=== PATIENT | male | born 1955 | race Hispanic/Latino ===

== ENCOUNTER 2017-06-25 22:00 | Emergency (ER) | payer OTHER ==
[~2017-06-25] VITALS: Ht 170.2 cm; Wt 79.4 kg
[~2017-06-25 22:00] MED LIST: LOSARTAN POTAS100 MG PO
--- NOTE | 2017-06-25 23:20 | Diagnostic Imaging Report ---
FOOT LEFT COMPLETE Comparison: None Clinical history: Pain, sharp the first digit swelling Findings: Limited portable views provided. Soft tissue swelling is seen about the first digit. Moderate first TP degenerative change. Oblique lucency is seen along the medial distal 1st metatarsal. Impression: 1. Questionable nondisplaced fracture of the medial distal 1st metatarsal; correlate with site of pain and history of trauma. Consider nonportable views for better evaluation. 2. Moderate first MTP degenerative change. Signed by: Dr Tahmina Kemp MD on 06/25/2017 11:16 PM
--- NOTE | 2017-06-26 00:53 | Diagnostic Imaging Report ---
EXAM: CT FOOT LEFT WO DATE: 06/25/2017 11:26 PM INDICATION: Evaluate for fracture COMPARISON: None TECHNIQUE: Left foot was scanned using a multidetector helical scanner. Coronal and sagittal reformations were obtained. Routine protocol performed. IV Contrast: None FINDINGS: SOFT TISSUES/BONES: Mild focal soft tissue induration along the undersurface of the fifth MTP. Moderate first MTP degenerative changes are present with spurring and joint space narrowing. There is no acute fracture or dislocation. IMPRESSION: No acute abnormality. Signed by: Dr Tahmina Kemp MD on 06/26/2017 12:49 AM
[2017-06-26] MEDS ORDERED: INDOCIN50 MG PEG (01:29)
[2017-06-26 01:33] VITALS: BP 150/81
== END 2017-06-26 01:41 | disposition home or self-care (01) ==
LOC: ER 22:00
DX: M79.672 Pain in left foot (principal); M10.072 Idiopathic gout, left ankle and foot; I10 Essential (primary) hypertension
CPT/HCPCS: 99283

== ENCOUNTER 2019-11-08 10:57 | Emergency (ER) | payer OTHER ==
[~2019-11-08] VITALS: Ht 170.2 cm; Wt 79.4 kg
[~2019-11-08 10:57] MED LIST changes: +INDOCIN50 MG PEG
--- OUTSIDE RECORDS SUMMARY | 2019-11-08 10:59 | XMS REPORT | Continuity of Care Document ---
Author Author [facility] Organization [facility] Address [address] [place] [address] [place] [id number] Phone Unavailable Care Team Providers Care Pediatrics Teacher Name Role Phone Jairo CUELLAR Attphys Unavailable Problems This patient has no known problems. Allergies, Adverse Reactions, Alerts This patient has no known allergies or adverse reactions. Medications This patient has no known medications. Procedures This patient has no known procedures. Results Test Description Test Time Test Comments Results Result Comments Source CT FOOT LEFT WO [place] [address] Patient Name: RAQUEL VANCE MR #: [id number] : 1955 Age/Sex: 62/M Req #: [id number] Adm Physician: Ordered by: CAMILLE CUELLAR MD Report #: [id number] Location: ER Room/Bed: Procedure: [id number] CT/CT FOOT LEFT WO Exam Date: 06/26/17 Exam Time: 2348 REPORT STATUS: Signed EXAM: CT FOOT LEFT WO DATE: 06/25/2017 11:26 PM INDICATION: Evaluate for fracture COMPARISON: None TECHNIQUE: Left foot was scanned using a multidetector helical scanner. Coronal and sagittal reformations were obtained. Routine protocol performed. IV Contrast: None FINDINGS: SOFT TISSUES/BONES: Mild focal soft tissue induration along the undersurface of the fifth MTP. Moderate first MTP degenerative changes are present with spurring and joint space narrowing. There is no acute fracture or dislocation. IMPRESSION: No acute abnormality. Signed by: Dr Dandre Kemp MD on 06/26/2017 12:49 AM Dictated By: DANDRE KEMP MD Transcribed By: YOVANI on 06/26/1748 COPY TO: CAMILLE CUELLAR MD FOOT LEFT COMPLETE [place] [address] Patient Name: RAQUEL VANCE MR #: [id number] : 1955 Age/Sex: 62/M Req #: [id number] Adm Physician: Ordered by: CAMILLE CUELLAR MD Report #: [id number] Location: ER Room/Bed: Procedure: [id number] DX/FOOT LEFT COMPLETE Exam Date: 06/25/17 Exam Time: 3 REPORT STATUS: Signed FOOT LEFT COMPLETE Comparison: None Clinical history: Pain, sharp the first digit swelling Findings: Limited portable views provided. Soft tissue swelling is seen about the first digit. Moderate first TP degenerative change. Oblique lucency is seen along the medial distal 1st metatarsal. Impression: 1. Questionable nondisplaced fracture of the medial distal 1st metatarsal; correlate with site of pain and history of trauma. Consider nonportable views for better evaluation. 2. Moderate first MTP degenerative change. Signed by: Dr Dandre Kemp MD on 06/25/2017 11:16 PM Dictated By: DANDRE KEPM MD 15 Transcribed By: YOVANI on 06/25/172315 COPY TO: CAMILLE CUELLAR MD
[2019-11-08] MEDS ORDERED: KETOROLAC TROMETHAMINE 30 MG/ML VIAL IV STA (11:10)
[2019-11-08] MEDS ORDERED: SODIUM CHLORIDE 0.9% 1000ML 1,000 ML IV STA ×2 (11:10→12:54)
[2019-11-08] MEDS ORDERED: CEFTRIAXONE SOD 1 GM/NS 50 ML 50 ML IV STA (11:10)
[2019-11-08] MEDS ORDERED: ONDANSETRON HCL INJ 2MG/ML 2ML 2 MG/ML VIAL IV STA (11:16)
--- NOTE | 2019-11-08 11:16 | Emergency Department Note ---
History of Present Illnes History of Present Illness Chief Complaint: General Medicine Complaints History of Present Illness This is a 64 year old male . c/o r flank pain x 2 wks intermittent worse this am 12/09 hx kidney stones Historian: Patient Arrival Mode: Car Onset (how long ago): day(s) (this am) Location: r flank Quality: 12/09 Radiation: abdomen Severity: moderate Duration (how long): day(s) (this am) Timing of current episode: constant Progression: worsening Context: recent illness, recent surgery, recent immobilization, recent travel, trauma/injury, new medications, hx of DVT/PE, non-compliance w/ medications, other Relieving factors: none Exacerbating factors: none Treatments prior to arrival: none Past Medical/Family History Physician Review I have reviewed the patient's past medical and family history. Any updates have been documented here. Past Medical History Recent Fever: No Clinical Suspicion of Infectio: No New/Unexplained Change in Ment: No Past Medical History: Kidney Stones Other Medical History: BPH Other Surgery: PROSTATES BIOSPY Social History Smoking Cessation: Never Smoker Alcohol Use: None Any Illegal Drug Use: No TB Exposure/Symptoms: No Physically hurt or threatened: No Family History Family history of heart diseas: No Other Last Tetanus: UNK Any Pre-Existing Lines (PICC,: No Review of Systems Review of Systems Constitutional: no symptoms EENTM: no symptoms Cardiovascular: no symptoms Respiratory: no symptoms Gastrointestinal: other (r flank pain) Genitourinary: no symptoms Musculoskeletal: no symptoms Neurological: no symptoms Psychological: no symptoms Endocrine: no symptoms Hematological/Lymphatic: no symptoms Review of other systems All other systems reviewed and negative. Physical Exam Related Data Allergies: Coded Allergies: No Known Allergies (Unverified , 03/07/17) Triage Vital Signs Vital Signs Date Time Temp Pulse Resp B/P (MAP) Pulse Ox O2 Delivery O2 Flow Rate FiO2 11/08/19 11:07 97.5 71 18 165/94 99 Vital signs reviewed: Yes Physical Exam CONSTITUTIONAL Constitutional: well-developed, well-nourished HENT HENT: normocephalic, atraumatic, oropharynx clear/moist, nose normal HENT L/R: left ext ear normal, right ext ear normal EYES Eyes: PERRL, conjunctivae normal NECK Neck: ROM normal PULMONARY Pulmonary: effort normal, breath sounds normal CARDIOVASCULAR Cardiovascular: regular rhythm, heart sounds normal, capillary refill normal, normal rate GASTROINTESTINAL Abdominal: soft, nontender, bowel sounds normal; left CVA tenderness, right CVA tenderness; other (c/o r flank pain x 2 wks intermittent worse this am 12/09 hx kidney stones) GENITOURINARY Genitourinary: exam deferred SKIN Skin: warm, dry MUSCULOSKELETAL Musculoskeletal: ROM normal NEUROLOGICAL Neurological: alert, oriented x 3, no gross motor or sensory deficits PSYCHOLOGICAL Psychological: mood/affect normal, judgement normal Results Laboratory Laboratory Laboratory Tests Test 11/08/19 11:50 11/08/19 11:09 White Blood Count 5.80 x10e3/uL (4.8-10.8) Red Blood Count 4.48 x10e6/uL (4.3-5.7) Hemoglobin 13.9 g/dL (14.0-18.0) Hematocrit 41.6 % (38.2-49.6) Mean Corpuscular Volume 92.9 fL (81-99) Mean Corpuscular Hemoglobin 31.0 pg (28-32) Mean Corpuscular Hemoglobin Concent 33.4 g/dL (31-35) Red Cell Distribution Width 12.5 % (11.7-14.4) Platelet Count 173 x10e3/uL (140-360) Neutrophils (%) (Auto) 71.1 % (38.7-80.0) Lymphocytes (%) (Auto) 21.2 % (18.0-39.1) Monocytes (%) (Auto) 6.7 % (4.4-11.3) Eosinophils (%) (Auto) 0.5 % (0.0-6.0) Basophils (%) (Auto) 0.3 % (0.0-1.0) Neutrophils # (Auto) 4.1 (2.1-6.9) Lymphocytes # (Auto) 1.2 (1.0-3.2) Monocytes # (Auto) 0.4 (0.2-0.8) Eosinophils # (Auto) 0.0 (0.0-0.4) Basophils # (Auto) 0.0 (0.0-0.1) Absolute Immature Granulocyte (auto 0.01 x10e3/uL (0-0.1) Sodium Level 142 mmol/L (136-145) Potassium Level 4.6 mmol/L (3.5-5.1) Chloride Level 109 mmol/L (98-107) Carbon Dioxide Level 24 mmol/L (22-29) Anion Gap 13.6 mmol/L (8-16) Blood Urea Nitrogen 22 mg/dL (7-26) Creatinine 1.71 mg/dL (0.72-1.25) Estimat Glomerular Filtration Rate 41 ML/MIN (60-) BUN/Creatinine Ratio 13 (6-25) Glucose Level 96 mg/dL (74-118) Calcium Level 9.5 mg/dL (8.4-10.2) Total Bilirubin 0.5 mg/dL (0.2-1.2) Aspartate Amino Transf (AST/SGOT) 28 IU/L (5-34) Alanine Aminotransferase (ALT/SGPT) 30 IU/L (0-55) Alkaline Phosphatase 65 IU/L (40-150) Total Protein 6.7 g/dL (6.5-8.1) Albumin 3.9 g/dL (3.5-5.0) Globulin 2.8 g/dL (2.3-3.5) Albumin/Globulin Ratio 1.4 (0.8-2.0) Urine Color Yellow (YELLOW) Urine Clarity Clear (CLEAR) Urine pH 5.5 (5 - 7) Urine Specific [place] >=1.030 (1.010-1.025) Urine Protein 1+ (NEGATIVE) Urine Glucose (UA) Negative (NEGATIVE) Urine Ketones Negative (NEGATIVE) Urine Blood Trace (NEGATIVE) Urine Nitrite Negative (NEGATIVE) Urine Bilirubin Negative (NEGATIVE) Urine Urobilinogen 0.2 mg/dL (0.2 - 1) Urine Leukocyte Esterase Negative (NEGATIVE) Urine RBC 0-5 /HPF (0-5) Urine WBC 0-5 /HPF (0-5) Urine Epithelial Cells Rare /LPF (NONE) Urine Bacteria Moderate /HPF (NONE) Imaging Impressions IMPRESSION: 1. 4 mm stone identified within the mid right ureter resulting in mild dilatation of the right ureter and collecting system. 2. Additional bilateral nonobstructive nephrolithiasis with stone burden as detailed above. 3. Prostatomegaly. 4. Diverticulosis coli without evidence for acute diverticulitis. Signed by: Dr. Dereck Thomas MD on 11/08/2019 11:50 AM Critical Care Time Subsequent provider I assumed direction of critical care for this patient from another provider of my specialty. Assessment & Plan Reassessment Reassessment time: 11:15 Reassessment 64 y m presented to ed c/o r flank pain x 2 wks intermittent worse this am 12/09 hx kidney stones - lab ct ordered - pt emdicated w/ rocephin ns toradol zofran Assessment & Plan Final Impression: (1) Kidney stone on right side Assessment & Plan discussed tyson ct results plan of care and f/u instructions plan 1. follow up with your doctor / urologist in 1-2 days without fail 2. return to ed as needed 3. Tylenol and Motrin 4. increase oral fluids 5. rx t#3 flomax zofran cipro Depart Disposition: HOME, SELF-CARE Last Vital Signs Date Time Temp Pulse Resp B/P (MAP) Pulse Ox O2 Delivery O2 Flow Rate FiO2 11/08/19 11:07 97.5 71 18 165/94 99 Home Meds Active Scripts Indomethacin (INDOCIN) 50 Mg Supp.rect, 50 MG PEG Q8H PRN for PAIN, #20 CAP Prov:CAMILLE CUELLAR MD 06/26/17 Reported Medications Losartan Potassium (LOSARTAN POTASSIUM) 100 Mg Tablet, 50 MG PO DAILY, TAB 03/07/17 GERMAINE GUTIERREZ Nov 08, 2019 11:16
--- NOTE | 2019-11-08 11:53 | Diagnostic Imaging Report ---
CT of the abdomen and pelvis, without contrast. History: Right flank pain. Comparison: None available. Technique: Multidetector CT scanning of the abdomen and pelvis was performed from the level of the lung bases to the inferior pubic rami without the use of contrast material. Coronal and sagittal multiplanar reformations were obtained. RADIATION DOSE: Total DLP: 315.74 mGy*cm Dose modulation, iterative reconstruction, and/or weight based adjustment of the mA/kV was utilized to reduce the radiation dose to as low as reasonably achievable. FINDINGS: Mild scattered areas of subsegmental atelectasis noted within the visualized lungs. The imaged portion of the heart demonstrates no significant abnormalities. The liver is normal in size and attenuation on this noncontrast enhanced examination. The gallbladder is unremarkable. There is no biliary ductal dilatation. The stomach, pancreas, and bilateral adrenal glands are unremarkable. The spleen is mildly prominent measuring 12 cm in length but otherwise appears unremarkable. A splenule is noted adjacent to the spleen. The kidneys are normal in size and location. There are 2 nonobstructing stones identified within the inferior pole of the right kidney measuring up to 4 mm. There is a 4 mm stone identified within the mid right ureter resulting in mild dilatation of the right ureter and collecting system. There is a 8 mm nonobstructing stone identified within the superior/mid left kidney. 3 additional punctate nonobstructing stones are identified within the mid/inferior left kidney. There is no evidence for left-sided hydronephrosis. The left ureter is normal in course and caliber. The partially distended urinary bladder demonstrates no significant abnormalities. The prostate is enlarged and contains calcifications. The abdominal aorta is normal course and caliber with mild atherosclerotic calcifications. The IVC is normal in caliber. Please note evaluation the bowel is limited without the use of enteric contrast material. The visualized loops of small and large bowel demonstrate no evidence of obstruction or inflammation. The appendix is visualized and appears unremarkable. Diverticula are noted within the sigmoid and descending colon without evidence for acute diverticulitis. There is no ascites or intraperitoneal free air. No abnormally enlarged lymph nodes are identified within the abdomen or pelvis. The osseous structures demonstrate no evidence for acute fracture or destructive process. The extraperitoneal soft tissues are unremarkable. IMPRESSION: 1. 4 mm stone identified within the mid right ureter resulting in mild dilatation of the right ureter and collecting system. 2. Additional bilateral nonobstructive nephrolithiasis with stone burden as detailed above. 3. Prostatomegaly. 4. Diverticulosis coli without evidence for acute diverticulitis. Signed by: Dr. Dereck Thomas MD on 11/08/2019 11:50 AM
[2019-11-08 12:22] LABS: BASOPHILS % 0.3 % (0.0-1.0); EOSINOPHILS % 0.5 % (0.0-6.0); HEMATOCRIT 41.6 % (38.2-49.6); HEMOGLOBIN 13.9 g/dL (14.0-18.0); LYMPHOCYTES # (AUTO) 1.2 (1.0-3.2); LYMPHOCYTES % 21.2 % (18.0-39.1); MEAN CORPUSCULAR HGB CONC 33.4 g/dL (31-35); MEAN CORPUSCULAR VOLUME 92.9 fL (81-99); MONOCYTES # (AUTO) 0.4 (0.2-0.8); MONOCYTES % 6.7 % (4.4-11.3); NEUTROPHILS # (AUTO) 4.1 (2.1-6.9); NEUTROPHILS % 71.1 % (38.7-80.0); PLATELET COUNT 173 x10e3/uL (140-360); RED BLOOD COUNT 4.48 x10e6/uL (4.3-5.7); RED CELL DISTRIBUTION WIDTH 12.5 % (11.7-14.4)
[2019-11-08 12:31] LABS: BILIRUBIN,URINE NEGATIVE (NEGATIVE); CLARITY,URINE CLEAR (CLEAR); COLOR,URINE YELLOW (YELLOW); KETONES,URINE NEGATIVE (NEGATIVE); LEUKOCYTE ESTERASE ,URINE NEGATIVE (NEGATIVE); NITRITE,URINE NEGATIVE (NEGATIVE); PROTEIN,URINE DIPSTICK 1+ (NEGATIVE); URINE UROBILINOGEN 0.2 mg/dL (0.2 - 1)
[2019-11-08 12:40] LABS: ALBUMIN 3.9 g/dL (3.5-5.0); ALBUMIN/GLOBULIN RATIO 1.4 (0.8-2.0); ANION GAP 13.6 mmol/L (8-16); CALCIUM 9.5 mg/dL (8.4-10.2); CREATININE, SERUM 1.71 mg/dL (0.72-1.25); POTASSIUM 4.6 mmol/L (3.5-5.1)
[2019-11-08 12:42] LABS: BACTERIA,URINE MODERATE /HPF; EPITHELIAL CELLS,URINE RARE /LPF; RBC,URINE 0-5 /HPF (0-5); WBC,URINE (MAN) 0-5 /HPF (0-5)
== END 2019-11-08 13:32 | disposition home or self-care (01) ==
LOC: ER 10:57
DX: M54.5 Low back pain (principal); N20.0 Calculus of kidney
CPT/HCPCS: 36415; 74176; 80053; 81001; 85025; 87086; 99283; J0696; J1885; J2405; J7030

== ENCOUNTER → 2019-12-17 | Day surgery (SDC) | payer OTHER ==
--- NOTE | 2019-12-13 16:05 | Diagnostic Imaging Report ---
EXAMINATION: CHEST 2 VIEWS INDICATION: Renal calculus COMPARISON: None FINDINGS: LINES/TUBES:None LUNGS:The lungs are well-inflated. No focal consolidation or pulmonary edema. PLEURA:No pleural effusion or pneumothorax. MEDIASTINUM:The cardiomediastinal silhouette appears normal in size and shape. BONES/SOFT TISSUES:No acute osseous injury. ABDOMEN:No free air under the diaphragm. IMPRESSION: No focal pneumonia or pulmonary edema. Signed by: Yuridia Tijerina MD on 12/13/2019 4:02 PM
--- NOTE | 2019-12-13 16:08 | Diagnostic Imaging Report ---
Exam: KUB - 2 views Indication: Renal calculi Comparison: CT abdomen pelvis of 11/08/2019 Findings: 7 mm left renal calculus and 4 mm right renal calculus corresponds with findings on the CT of 11/08/2019. Nonobstructive bowel gas pattern. No free air. Partially visualized lung bases are clear. No acute osseous injury. Phleboliths in the pelvis. Impression: Bilateral renal calculi measure up to 7 mm on the left and 4 mm on the right. Signed by: Yuridia Tijerina MD on 12/13/2019 4:04 PM
[~2019-12-17] MED LIST changes: +CEFTRIAXONE SOD 1 GM/NS 50 ML 50 ML IV ONE; +DEXAMETHASONE SOD PHOS INJ 4 MG/ML VIAL ONE; +EPHEDRINE SULFATE INJ 50 MG/ML VIAL ONE; +ETOMIDATE 2 MG/ML 10 ML INJ IV ONE; +FLOMAX0.4 MG PO; +LIDOCAINE HCL 2% JELLY 5 ML TUBE ONE; +LIDOCAINE HCL 2% LOCAL INJ 5 ML SDV VIAL INJ ONE; +ONDANSETRON HCL INJ 2MG/ML 2ML 2 MG/ML VIAL ONE; +PROPOFOL IV EMULSION 10 MG/ML 20 ML VIAL ONE; +SEVOFLURANE INHAL SOLN 250 ML PEN BTL ONE
[2019-12-17 09:00] VITALS: BP 138/81
--- NOTE | 2019-12-17 11:20 | Operative Report ---
DATE OF PROCEDURE: 12/17/2019 SURGEON: Dl Gaming MD PREOPERATIVE DIAGNOSIS: Left kidney stone. POSTOPERATIVE DIAGNOSIS: Left kidney stone. PROCEDURES: 1. Staged shock wave lithotripsy, left side. 2. Supervision of fluoroscopy. ANESTHESIA: General. ESTIMATED BLOOD LOSS: Minimal. COMPLICATIONS: None. INDICATION: Mr. Goodwin is a very pleasant 64-year-old male with a history of left kidney stones. He and I had a long discussion about alternatives, risks, and benefits of doing nothing, shock wave lithotripsy, ureteroscopy, percutaneous surgery or open surgery. He voiced understanding of the options, alternatives, risks, and benefits and elected to proceed. PROCEDURE IN DETAIL: After informed consent was obtained, the patient was taken to the operative suite, placed supine on the operating table, underwent general anesthesia by Anesthesia Service. Stone was localized in the X, Y, and Z planes. Treatment was performed per the treatment report. The patient tolerated the procedure well, transferred to recovery room in excellent condition. Supervision of fluoroscopy: I was present for the entire procedure and supervised fluoroscopy. There was no radiologist present. Dosage per treatment report. Dl Gaming MD ES/MODL /[id number]
== END | disposition home or self-care (01) ==
LOC: OR 05:35
PROVIDERS: ATTEND Urology
DX: N20.0 Calculus of kidney (principal); N13.30 Unspecified hydronephrosis; R97.20 Elevated prostate specific antigen [PSA]; N40.1 Benign prostatic hyperplasia with lower urinary tract symptoms; N13.8 Other obstructive and reflux uropathy; N39.0 Urinary tract infection, site not specified; R35.1 Nocturia; I10 Essential (primary) hypertension; F41.9 Anxiety disorder, unspecified; Z01.810 Encounter for preprocedural cardiovascular examination; Z01.812 Encounter for preprocedural laboratory examination; Z01.818 Encounter for other preprocedural examination; Z11.59 Encounter for screening for other viral diseases
CPT/HCPCS: 50590; 71046; 74018; 93005; J0696; J1100; J2001; J2405; U0002